=== PATIENT | female | born 1935 | race Caucasian/White ===

== ENCOUNTER → 2021-04-02 | Outpatient (CLI) | payer MEDICARE ==
[~2021-04-02] MED LIST: ASPI81TA45 PO; B CO1CAP5 PO; CALC1CAP18 PO; CHOL10003 PO; D-Mannose PO; FLAX10004 PO; FURO20TA3 PO; GLUC-120 PO; NIAC500C3 PO; OMEG1CAP23 PO; Premarin PO
[2021-04-02 11:01] LABS: ALANINE AMINOTRANSFERASE 19 U/L (12-78); CALCIUM 9.1 mg/dL (8.5-10.1); CREATININE 0.67 mg/dL (0.55-1.02)
[2021-04-02 11:03] LABS: ALKALINE PHOSPHATASE 57 U/L (45-117); BILIRUBIN,TOTAL 0.4 mg/dL (0.2-1.0); TOTAL PROTEIN 7.4 g/dL (6.4-8.2)
[2021-04-02 11:13] LABS: ANION GAP 5 mmol/L (5-15); CHLORIDE 105 mmol/L (98-107)
== END | disposition home or self-care (01) ==
LOC: STAR 09:34
PROVIDERS: ATTEND Obstetrics & Gynecology Female Pelvic Medicine and Reconstructive Surgery
DX: Z01.812 Encounter for preprocedural laboratory examination (principal); Z20.822 Contact with and (suspected) exposure to COVID-19; N39.3 Stress incontinence (female) (male); R10.2 Pelvic and perineal pain; N81.10 Cystocele, unspecified; N81.6 Rectocele; I44.4 Left anterior fascicular block; R94.31 Abnormal electrocardiogram [ECG] [EKG]
CPT/HCPCS: 36415; 80053; 93005; U0003

== ENCOUNTER 2021-04-08 08:47 | Day surgery (SDC) | payer MEDICARE ==
[~2021-04-08] VITALS: Ht 177.8 cm; Wt 80.2 kg
[~2021-04-08 08:47] MED LIST changes: +BUPIVACAINE/PF 0.25% ONE; +EPINEPHRINE 1 MG/ML, 1ML ONE; +NEOMY/POLYMYXIN B GU IRR. 1 ML ONE
[2021-04-08] MEDS ORDERED: FENTANYL PF 100 MCG/2ML ONE (09:16)
[2021-04-08] MEDS ORDERED: MIDAZOLAM 1 MG/ML, 2ML ONE (09:18)
[2021-04-08 09:45] VITALS: BP 179/73
[2021-04-08] MEDS ORDERED: CEFAZOLIN 1,000 MG ONE ×2 (09:51)
[2021-04-08] MEDS ORDERED: PROPOFOL 10 MG/ML, 20ML ONE (09:51)
[2021-04-08] MEDS ORDERED: ONDANSETRON 2MG/ML, 2ML ONE (09:51)
[2021-04-08] MEDS ORDERED: CHLORHEXIDINE 15 ML UDC ONE (09:52)
[2021-04-08] MEDS ORDERED: LACTATED RINGERS 1,000 ML IV SCH (10:00)
[2021-04-08] MEDS ORDERED: CHLORHEXIDINE 15 ML UDC PO ONE (10:00)
[2021-04-08] MEDS ORDERED: OXYcodone 5 MG/5 ML ORAL.SOL UDC PO PRN (10:30)
[2021-04-08] MEDS ORDERED: ONDANSETRON 2MG/ML, 2ML IVPush PRN (10:30)
[2021-04-08] MEDS ORDERED: LABETALOL 5MG/ML, 20ML IV PRN (10:30)
[2021-04-08] MEDS ORDERED: FENTANYL PF 100 MCG/2ML IV PRN (10:30)
[2021-04-08] MEDS ORDERED: hydrALAzine 20 MG/ML, 1ML IV PRN (10:30)
[2021-04-08] MEDS ORDERED: HYDROmorphone 1 MG/ML, 1ML INJ IVPush PRN (10:30)
[2021-04-08] MEDS ORDERED: ACETAMINOPHEN 325 MG TABLET PO PRN (10:30)
== END 2021-04-08 14:30 | disposition home or self-care (01) ==
LOC: OUT 08:47
PROVIDERS: ATTEND Obstetrics & Gynecology Female Pelvic Medicine and Reconstructive Surgery
DX: N99.3 Prolapse of vaginal vault after hysterectomy (principal); N39.46 Mixed incontinence; F41.9 Anxiety disorder, unspecified; M19.90 Unspecified osteoarthritis, unspecified site; F17.210 Nicotine dependence, cigarettes, uncomplicated; Z98.890 Other specified postprocedural states
CPT/HCPCS: 57265; 57282; 57288; C1771; J0171; J0690; J2250; J2405; J2704; J3010; J7120